=== PATIENT | male | born 1980 | race Two or more races ===

== ENCOUNTER 2017-12-12 07:46 | Outpatient (CLI) | payer OTHER | END 2017-12-12 07:47 | disposition critical access hospital (66) | LOC: EMS 07:46 | PROVIDERS: ATTEND Surgery | DX: S01.511A Laceration without foreign body of lip, initial encounter (principal); M54.2 Cervicalgia; R53.1 Weakness; R51 Headache; R55 Syncope and collapse; W18.39XA Other fall on same level, initial encounter; W22.8XXA Striking against or struck by other objects, initial encounter; Y92.002 Bathroom of unspecified non-institutional (private) residence as the place of occurrence of the external cause | CPT/HCPCS: A0425; A0427 ==

== ENCOUNTER 2017-12-12 08:10 | Emergency (ER) | payer OTHER ==
[2017-12-12] MEDS ORDERED: ACETAMINOPHEN 1,000 MG/100 ML 100 ML IV STA (08:17)
[2017-12-12] MEDS ORDERED: SODIUM CHLORIDE 0.9% 1,000 ML IV ONE (08:17)
--- NOTE | 2017-12-12 08:23 | ED Physician Documentation ---
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 denies: Focal weakness, Numbness, Seizure (not per EMS), Confused, Altered mental status Endocrine: denies: Easy bruising / bleeding Immunocompromised: denies: Immunocompromised PD PAST MEDICAL HISTORY - Present Medications Home Medications: Ambulatory Orders Medication Instructions Recorded Confirmed Fexofenadine HCl [Fexofenadine HCl] 180 mg PO DAILY 12/12/17 12/12/17 Lidocaine Patch 5% [Lidoderm Patch] 1 each TOP DAILY PRN #10 patch 12/12/17 - Allergies Allergies/Adverse Reactions: Allergies Allergy/AdvReac Type Severity Reaction Status Date / Time crab Allergy Anaphylaxis Verified 12/12/17 08:21 PD ED PE NORMAL - Vitals Vital signs reviewed: Yes - General General: Alert and oriented X 3 - HEENT HEENT: PERRL, Other (small mid lower lip lac not crossing adela border and not needing a suture, teeth s fx, no tongue lac, lower jaw appears a biit receded but pt reports bite feels nl) - Neck Neck: Other (+ bony and left posterior ST TTP s pulsatile mass) - Cardiac Cardiac: RRR - Respiratory Respiratory: No respiratory distress, Clear bilaterally - Abdomen Abdomen: Soft, Non tender - Back Back: Other (ST TTP upper back pt states feels better off the board) - Derm Derm: Normal color - Extremities Extremities: No deformity, No tenderness to palpate, Normal ROM s pain - Neuro Neuro: Alert and oriented X 3, lead miner 2-12 intact, No motor deficit, No sensory deficit, Normal speech, Other (diffusely weak but non focal, nl sensation) Eye Opening: Spontaneous Motor: Obeys Commands Verbal: Oriented GCS Score: 15 Results - Vitals Vitals: Vital Signs - 24 hr 12/12/17 12/12/17 12/12/17 08:12 11:13 13:26 Temperature 36.0 C L Heart Rate 71 64 71 Respiratory 41 H 14 18 Rate Blood Pressure 127/78 112/74 O2 Saturation 100 99 100 12/12/17 15:03 Temperature Heart Rate 81 Respiratory 16 Rate Blood Pressure 120/88 H O2 Saturation 98 Oxygen O2 Source Room air - EKG (time done) 0823 Rate: Rate (enter#) (58) Rhythm: NSR Coyle: Normal Intervals: Normal IA QRS: Normal Ischemia: Normal ST segments - Labs Labs: Laboratory Tests 12/12/17 12/12/17 12/12/17 09:17 09:17 09:17 WBC 7.9 RBC 4.60 L Hgb 14.3 Hct 41.7 L MCV 90.7 MCH 31.1 H MCHC 34.3 RDW 13.0 Plt Count 319 MPV 8.1 Neut # (Auto) 5.5 Lymph # (Auto) 1.5 Archer # (Auto) 0.5 Eos # (Auto) 0.3 Baso # (Auto) 0.0 Absolute Nucleated RBC 0.00 Nucleated RBC % 0.0 Sodium 137 Potassium 4.4 Chloride 106 Carbon Dioxide 27 Anion Gap 4.0 L BUN 13 Creatinine 1.0 Estimated GFR (MDRD) 85 L Glucose 105 H Calcium 8.5 Troponin I < 0.04 Urine Color Urine Clarity Urine pH Ur Specific [place] Urine Protein Urine Glucose (UA) Urine Ketones Urine Occult Blood Urine Nitrite Urine Bilirubin Urine Urobilinogen Ur Leukocyte Esterase Ur Microscopic Review Urine Culture Comments 12/12/17 10:00 WBC RBC Hgb Hct MCV MCH MCHC RDW Plt Count MPV Neut # (Auto) Lymph # (Auto) Archer # (Auto) Eos # (Auto) Baso # (Auto) Absolute Nucleated RBC Nucleated RBC % Sodium Potassium Chloride Carbon Dioxide Anion Gap BUN Creatinine Estimated GFR (MDRD) Glucose Calcium Troponin I Urine Color YELLOW Urine Clarity CLEAR Urine pH 7.0 Ur Specific [place] 1.010 Urine Protein NEGATIVE Urine Glucose (UA) NEGATIVE Urine Ketones NEGATIVE Urine Occult Blood NEGATIVE Urine Nitrite NEGATIVE Urine Bilirubin NEGATIVE Urine Urobilinogen 0.2 (NORMAL) Ur Leukocyte Esterase NEGATIVE Ur Microscopic Review NOT INDICATED Urine Culture Comments NOT INDICATED - Rads (name of study) CT C spine Radiology: Discussed with rads (no fx) CTA neck Radiology: Discussed with rads (no dissection) CT facial Radiology: Discussed with rads (no fx, sinus mucosal thickening) CT head Radiology: Discussed with rads (verbal per rad, no fx mass hift and no obvious hemorrhage, but subtle hyperdensity floor L lat vent could be choroid plexus or could be early L intraventricular hemorrhage - if symptomatic (pt is - that is why i got the CT) rec rpt CT in 6 hr) PD MEDICAL DECISION MAKING - ED course ED course: MSE performed acute isssues identified = syncope unclear etiology and HI with abn CTH possible bleed syncope unclear etiology possibly vagal 2/2 neck pain rad rec rpt CTH in 6hr called hospitalist - she called back right away - we spoke at 1050 - I req to place in obs for tele and recommended CTH noon hospitalist to ED - states she spoke to hospitalist group fitness manager as well as care management and declines to admit pt to observation -so will remain in ED for continued tele, rpt CT in 6 hr, I added on an echo as part of syncope work up ED nurse correctional case manager aware - Sepsis Event Vital Signs: Vital Signs - 24 hr 12/12/17 12/12/17 12/12/17 08:12 11:13 13:26 Temperature 36.0 C L Heart Rate 71 64 71 Respiratory 41 H 14 18 Rate Blood Pressure 127/78 112/74 O2 Saturation 100 99 100 12/12/17 15:03 Temperature Heart Rate 81 Respiratory 16 Rate Blood Pressure 120/88 H O2 Saturation 98 Oxygen O2 Source Room air Departure - Departure Disposition: 01 Home, Self Care Clinical Impression: Syncope Qualifiers: Syncope type: unspecified Qualified Code(s): R55 - Syncope and collapse Head injury Qualifiers: Encounter type: initial encounter Qualified Code(s): S09.90XA - Unspecified injury of head, initial encounter Neck sprain Qualifiers: Encounter type: initial encounter Qualified Code(s): S13.9XXA - Sprain of joints and ligaments of unspecified parts of neck, initial encounter Condition: Good Instructions: ED Fainting Unkn Cause, ED Syncope Vasovagal, ED Head Injury Closed Follow-Up: IAN Dowling [Provider Group] Prescriptions: Lidocaine Patch 5% [Lidoderm Patch] 1 each TOP DAILY PRN #10 patch PRN Reason: Pain Comments: Your labs looked fine Your EKG was normal, you had no arrhythmias on cardiac monitoring for 6 hours, and the ultrasound of your heart was fine according to the echocardiogram artificial insemination technician (you should have your PMD at [facility] call for the final report next week ) Because you hit your head and were unconscious we did CT scans - the first CT scan was concerning for a possible small amount of blood in the lateral ventricle on the left side so the radiologist recommended a repeat CT scan in 6 hr to determine if there was actually bleeding - and the repeat CT scan was fine and there was no bleeding Also the CT scans of the bones and blood vessels in the neck were fine So it is OK for you to go home. Recommend no driving for 48 hr. [place] - I recommend a week of light duty / no PT etc Tylenol and motrin and lidocaine patches applied to the neck for up to 12 hr a day as needed for the pain
[2017-12-12] MEDS ORDERED: IOPAMIDOL-300 100 ML VIAL ONE (08:50)
[2017-12-12 09:38] LABS: BASOPHILS % (AUTO) 0.4 %; EOSINOPHILS # (AUTO) 0.3 10^3/uL (0.0-0.7); EOSINOPHILS % (AUTO) 4.2 %; HGB - HEMOGLOBIN 14.3 g/dL (14.0-18.0); LYMPHOCYTES # (AUTO) 1.5 10^3/uL (1.5-3.5); LYMPHOCYTES % (AUTO) 18.9 %; MEAN CORPUSCULAR HEMOGLOBIN 31.1 pg (27.0-31.0); MEAN CORPUSCULAR HGB CONC 34.3 g/dL (32.0-36.0); MEAN CORPUSCULAR VOLUME 90.7 fL (80.0-94.0); MEAN PLATELET VOLUME 8.1 fL (7.4-11.4); MONOCYTES # (AUTO) 0.5 10^3/uL (0.0-1.0); NEUTROPHILS # (AUTO) 5.5 10^3/uL (1.5-6.6); NEUTROPHILS % (AUTO) 70.5 %; PLT - PLATELET COUNT 319 10^3/uL (130-450); WHITE BLOOD COUNT 7.9 x10^3/uL (4.8-10.8)
[2017-12-12 09:45] LABS: CALCIUM 8.5 mg/dL (8.5-10.3)
[2017-12-12 10:22] LABS: BILIRUBIN,URINE NEGATIVE (NEGATIVE); GLUCOSE, URINE (UA) NEGATIVE (NEGATIVE); KETONES,URINE (UA) NEGATIVE (NEGATIVE); LEUKOCYTE ESTERASE, URINE NEGATIVE (NEGATIVE); NITRITE,URINE NEGATIVE (NEGATIVE); OCCULT BLOOD,URINE NEGATIVE (NEGATIVE); PROTEIN,URINE NEGATIVE (NEGATIVE); UROBILINOGEN,URINE 0.2 (NORMAL) E.U./dL (NORMAL)
[2017-12-12 10:24] LABS: CLARITY,URINE CLEAR (CLEAR)
--- NOTE | 2017-12-12 10:33 | CT Report ---
Procedure Date: 12/12/2017 Accession Number: [id number] / [id number] Procedure: CT - Cervical Spine W/O CPT Code: FULL RESULT: EXAM: Head W/O, Neck Angio, Facial Bones W/O, Cervical Spine W/O DATE: 12/12/2017 9:40 AM CLINICAL HISTORY: HI COMPARISON: None. TECHNIQUE: Multiaxial CT images were obtained from the foramen magnum to the vertex without the use of intravenous contrast. Field of view coverage and dedicated bone kernel thin slice reformats of the facial bones in axial, sagittal and coronal planes were also obtained. Subsequently, arterial phase CT angiography of the neck was performed. Separate dedicated bone kernel reformats of the cervical spine in axial, coronal and sagittal planes were performed as a trauma cervical spine protocol from the neck CT angiography source images. In accordance with CT protocol optimization, one or more of the following dose reduction techniques were utilized for this exam: automated exposure control, adjustment of mA and/or KV based on patient size, or use of iterative reconstructive technique. FINDINGS: Brain: Parenchyma: Subtle curvilinear hyperdensity along the floor of the left lateral ventricle is felt to most likely represent choroid plexus. No definite intraparenchymal hemorrhage. No evidence of mass, midline shift, or CT findings of infarction. Schulte-white differentiation is distinct. Extraaxial Spaces: Normal for age. No subdural or epidural collections identified. Ventricles: Normal in size and position. Sinuses: Imaged paranasal sinuses, orbits, and mastoids show no significant abnormality. Bones: No evidence of fracture or calvarial defect. Other: None. Facial bones: No facial bone fracture is identified. Mucoperiosteal thickening in the sinuses; including a mucoid retention cyst in the right frontal sinus, partial opacification of the ethmoid air cells and thickening of nasal mucosa, all in keeping with sinusitis. Cervical spine: Alignment: Preserved. No scoliosis or spondylolisthesis. The atlantoaxial relationship is preserved. Bones: No fracture or bone lesion. Interspace Levels/Facets: Preserved with no sign of trauma. No significant degenerative changes. Spinal Canal: No abnormally enhancing areas by CT. Sensitivity for spinal epidural hematoma is limited by the presence of contrast; no overt cord compression is detected. Musculature: Atraumatic. Other: The paravertebral and prevertebral soft tissues are normal. The lung apices are clear. CTA neck: Right Carotid: Atraumatic and patent. The common carotid, internal carotid, and external carotid arteries are widely patent. No dissection, significant atherosclerotic plaque, or calcification identified. Left Carotid: Atraumatic and patent. The common carotid, internal carotid, and external carotid arteries are widely patent. No dissection, significant atherosclerotic plaque, or calcification identified. Vertebrals: Atraumatic and patent. No dissection is detected. The vertebrobasilar system shows no stenoses. Intracranial Circulation: Normal. No stenoses or aneurysms of the visualized vessels. IMPRESSION: No evidence of trauma to the vertebral and carotid arteries bilaterally. No evidence of trauma to the cervical spine. No evidence of trauma to the facial bones or osseous cranium. No evidence of intra-axial bleed, midline shift or herniation. No extra-axial bleed is detected with the caveat that a subtle linear hyperdensity along the floor of the left lateral ventricle, felt to represent choroid plexus, limits exclusion of early minimal left intraventricular hemorrhage. If clinical status indicates, follow-up noncontrast head CT in 6 hours versus exclusion by MRI. [facility]
[2017-12-12] MEDS ORDERED: IOPAMIDOL-300 100 ML VIAL IVP ONE (10:57)
--- NOTE | 2017-12-12 15:32 | CT Report ---
Procedure Date: 12/12/2017 Accession Number: [id number] / [id number] Procedure: CT - Head W/O CPT Code: FULL RESULT: EXAM: Head W/O DATE: 12/12/2017 3:14 PM CLINICAL HISTORY: rpt per rad COMPARISON: CT brain performed earlier the same day. TECHNIQUE: Multiaxial CT images were obtained from the foramen magnum to the vertex. IV contrast: None. Reformats: Coronal. In accordance with CT protocol optimization, one or more of the following dose reduction techniques were utilized for this exam: automated exposure control, adjustment of mA and/or KV based on patient size, or use of iterative reconstructive technique. FINDINGS: Parenchyma: No intraparenchymal hemorrhage. No evidence of mass, midline shift, or CT findings of infarction. Schulte-white differentiation is distinct. Extraaxial Spaces: Normal for age. No subdural or epidural collections identified. Ventricles: Normal in size and position. Sinuses: Imaged paranasal sinuses, orbits, and mastoids show no significant abnormality. Bones: No evidence of fracture or calvarial defect. Other: None. IMPRESSION: Normal head CT. RADIA
[2017-12-12] MEDS ORDERED: IBUPROFEN 400 MG TABLET PO STA (15:56)
[2017-12-12] MEDS ORDERED: CYCLOBENZAPRINE 10 MG TABLET PO STA (15:56)
[2017-12-12] MEDS ORDERED: LIDOCAINE PATCH 5% TOP PRN (15:56)
[2017-12-12 16:18] VITALS: BP 120/76
== END 2017-12-12 17:07 | disposition home or self-care (01) ==
LOC: EDUNIT# → ED 08:10
DX: R55 Syncope and collapse (principal); S06.9X1A Unspecified intracranial injury with loss of consciousness of 30 minutes or less, initial encounter; S13.9XXA Sprain of joints and ligaments of unspecified parts of neck, initial encounter; W18.30XA Fall on same level, unspecified, initial encounter; W22.8XXA Striking against or struck by other objects, initial encounter; Y92.002 Bathroom of unspecified non-institutional (private) residence as the place of occurrence of the external cause
CPT/HCPCS: 36415; 70450; 70486; 70498; 72125; 80048; 81003; 84484; 85025; 93005; 93306; 96361; 96365; 99284; A9270; J0131; Q9967; 81001; 87086

== ENCOUNTER 2017-12-18 10:59 | Outpatient (CLI) | payer OTHER | END 2017-12-18 11:00 | disposition home or self-care (01) | LOC: SC 10:59 | PROVIDERS: ATTEND Internal Medicine Pulmonary Disease | DX: G47.30 Sleep apnea, unspecified (principal); G47.10 Hypersomnia, unspecified; G47.8 Other sleep disorders; R06.83 Snoring | CPT/HCPCS: 99203; 99212 ==

== ENCOUNTER 2018-01-23 19:29 | Outpatient (CLI) | payer OTHER | END 2018-01-23 19:30 | disposition home or self-care (01) | LOC: SC 19:29 | PROVIDERS: ATTEND Internal Medicine Pulmonary Disease | DX: G47.33 Obstructive sleep apnea (adult) (pediatric) (principal) | CPT/HCPCS: 95810 ==

== ENCOUNTER 2018-02-19 14:21 | Outpatient (CLI) | payer OTHER | END 2018-02-19 14:22 | disposition home or self-care (01) | LOC: SC 14:21 | PROVIDERS: ATTEND Nurse Practitioner Family | DX: G47.33 Obstructive sleep apnea (adult) (pediatric) (principal) | CPT/HCPCS: 99212; 99214 ==